=== PATIENT | male | born 1960 | race Caucasian/White ===

== ENCOUNTER 2018-03-23 13:30 | Oncology outpatient (ONC) | payer OTHER, SELFPAY ==
[2018-03-12 15:49] VITALS: BP 132/80; PULSE 48; RESP 17; TEMP 36.9; O2SAT 100
--- NOTE | 2018-03-12 15:49 | P.CONONC_ITS ---
History of Present Illness - Data of Consult Consult date: 03/12/18 - Consult Narrative Reason for consult: MGUS Narrative: [place] is a 57 year old male. Or he has a history of page to nerves affecting both lower extremities due to herniated disc. He underwent lumbar micro diskectomy. Postoperatively, he had persistent radicular paresthesias. He had extensive work up did not showed any identifiable etiology. On 08/22/2017, SPEP showed M protein of 0.2 g/dl. On 09/05/2017, SPEP showed 0.3 g/dl M-protein. On August 26, 2017, patient underwent lumbar spine MRI without gadolinium. And the study showed stable appearance of the postoperative number spine with multiple disc bulges resulting in no greater than mid foraminal stenosis. Skeletal survey from September 03, 2017 showed no evidence for lytic lesions in the axial or proximal appendicular skeleton. Degenerative changes were noted. He had BMA/Bx on 09/16/2017. plasma cell s accounted for 0.1% of total evnets. Polycolonal plasma cells present with a kappa to lambda ratio of 1.6. Flow showed no clonal plasma cell population. Normal male karyotype 46, XY[20], No assay specific abnormalities detected by Multiple Myeloma FISH Panel. On September 16, [address] scan of the chest abdomen and pelvis. And it showed no systemic or bulky lymphadenopathy; there were incidental 6 and 5 mm right lower lobe pulmonary nodules were seen. And nonspecific anterior pulmonary ground-glass opacity in the bilateral upper lobes. On 02/02/2018, CT chest without contrast was performed. It showed findings pointing toward diagnosis of likely benign granulomatous disease. One year follow-up with CT scan was recommended. Clinically, he reports no bone pain. His appetite is normal. His weight stable. No nausea or vomiting. No constipation and diarrhea. No blood in stool or in urine. His energy level is ok, but would like to run more. Patient reports pain?: No Home Medications and Allergies Home Medications Medication Instructions Recorded Confirmed Type acetaminophen 500 mg PO Q4-6H PRN 03/12/18 03/12/18 History clotrimazole 1 applic TOPICAL BID 03/12/18 03/12/18 History cyanocobalamin (vitamin B-12) 1,000 mcg PO DAILY 03/12/18 03/12/18 History fluticasone 2 spray INTRANASAL BID 03/12/18 03/12/18 History gabapentin 600 mg PO TID 03/12/18 03/12/18 History ibuprofen 800 mg PO BID PRN 03/12/18 03/12/18 History omega-3 fatty acids 1,000 mg PO DAILY 03/12/18 03/12/18 History Allergies Allergy/AdvReac Type Severity Reaction Status Date / Time latex Allergy Rash Verified 03/12/18 15:40 Medical History - Medical, Surgical, Family History Medical History: Medical History (Last Updated 03/12/18 @ 15:56 by Zacarias Cruz MD) MGUS (monoclonal gammopathy of unknown significance) ELIZABETH (obstructive sleep apnea) Solitary pulmonary nodule on lung CT Surgical History: Surgical History (Last Updated 03/12/18 @ 15:58 by Zacarias Cruz MD) History of laser refractive surgery Previous back surgery Family History: Family History (Last Updated 03/12/18 @ 15:59 by Zacarias Cruz MD) Mother Diabetes mellitus Father Heart attack - Social History Smoking Status: Never smoker Substance Use Type: does not use Alcohol Intake: current Alcohol Intake Frequency: 0-2 drinks per day Review of Systems All systems PM: reviewed and no additional remarkable complaints except as stated Exam Vital signs: Temp 98.5 F 03/12/18 15:49 Pulse 48 L 03/12/18 15:49 Resp 17 03/12/18 15:49 BP 132/80 03/12/18 15:49 Pulse Ox 100 03/12/18 15:49 ECOG 1 Narrative: Constitutional: Well developed, well nourished, not in any acute respiratory distress, average body habitus, well groomed, pleasant and cooperative. HEENT: Normocephalic atraumatic. Extraocular muscle movement intact. Pupils are round, equal and reactive to light and accommodations. Anicteric sclera. No hearing difficulty; Oral mucus membrane moist and without ulcers. Neck: Supple, symmetrical, and tracheal midline; No palpable thyromegaly and no palpable lymph nodes. Respiratory: No use of accessory muscles. Clear to auscultation, and no wheezes or rales or rubs. Cardiovascular: Regular rate and rhythm, S1 and S2 normal, no murmurs gallops or rubs. No JVD. No pitting edema of lower extremities. Abdomen: Soft, nontender, non-distended, bowel sounds normal, no palpable organomegaly, no hernia, no palpable masses. Lower extremities: No palpable pedal edema. Lymphatic: no palpable lymph nodes in the neck, axillae, or groins. Musculoskeletal: normal gait and station, no clubbing, no cyanosis, no pitting edema. Skin: no rashes, no ulcers, no petechiae Neurological: Awake and alert and oriented x3. CN II-XII grossly intact. No focal motor or sensory deficit. Psychiatric: Good judgment, good insight, normal affect, normal thought process , cooperative, no depression, no anxiety. Results - Labs HBSAg: non-reactive HBcAb, IgM: non-reactive HBsAb: negative HepA, IgM: non-reactive HepC Ab: non-reactive HIV-1+2, HIV P24 Ag: negative Assessment and Plan (1) MGUS (monoclonal gammopathy of unknown significance) His most recent laboratory test was in September 2017. Will repeat. Plan: 1. CBC, CMP, B2M, LDH, SPEP reflex IFX, SFLC, QIg 2. RTC after results are available for review. (2) Peripheral neuropathy Probably not related to MGUS Plan: Continue Gabapentin (3) Pulmonary nodules/lesions, multiple His most recent CT scan was on January the 2017. The findings point towards granulomatous disease. The recommendation is regular follow-up in 1 year; if stable may D/C CT scan in the future. Plan: CT in one year, due 02/2019
--- NOTE | 2018-03-13 09:17 | ONC.SCHED ---
MM PANEL DRAW 03/16/18 DOES NOT REQUIRE AUTHORIZATION FOR CODES PROVIDED BY MICHELLE: [id number]. DOCUMENTATION SCANNED INSURANCE AUTHORIZATION
[2018-03-16 09:34] LABS: Add Manual Diff / Slide Review NO; Basophils Percent Auto 0.7 % (0-2); Eosinophils Percent Auto 2.8 % (2-4); Hematocrit 42.6 % (41-53); Hemoglobin 14.7 g/dL (13.5-17.5); Lymphocytes Percent Auto 29.9 % (25-40); Mean Corpuscular HGB Conc 34.6 % (30-36); Mean Corpuscular Hemoglobin 32.1 PG (26-34); Mean Corpuscular Volume 92.8 fL (80-100); Monocytes Percent Auto 11.5 % (3-14); Neutrophils Absolute Auto 2400 /uL (3000-5900); Neutrophils Percent Auto 55.1 % (50-75); Platelet Count 198 X10^3/uL (150-400); Red Cell Distribution Width 12.7 % (11.6-14.8); White Blood Cell Count 4.3 X10^3/uL (4.5-11.0)
[2018-03-16 09:45] LABS: Alanine Aminotransferase 31 IU/L (21-72); Albumin 4.6 g/dL (3.5-5.0); Albumin Globulin Ratio 1.7 (1.0-2.8); Alkaline Phosphatase 53 U/L (38-126); Aspartate Aminotransferase 30 IU/L (17-59); BUN Creatinine Ratio 15.6 (6-22); Bilirubin Total 0.7 mg/dL (0.2-1.3); Blood Urea Nitrogen 14 mg/dL (9-20); Calcium 9.6 mg/dL (8.4-10.2); Carbon Dioxide 32 mmol/L (22-32); Chloride 101 mmol/L (98-107); Estimated Glomerular Filt Rate > 60.0 mL/min (>60); Globulin 2.7 g/dL (1.7-4.1); Glucose 93 mg/dL (70-100); HEMOLYSIS < 15 (0-50); Lactate Dehydrogenase 391 U/L (313-618); Potassium 4.2 mmol/L (3.4-5.1); Sodium 146 mmol/L (137-145); Total Protein 7.3 g/dL (6.3-8.2)
--- NOTE | 2018-03-16 14:32 | PC.NURSE ---
labs stable, immunology pending, next appt on 03/23
[2018-03-17 13:51] LABS: Free Kappa Light Chain 23.2 mg/L (3.3-19.4); Free Lambda 10.5 mg/L (5.7-26.3)
[2018-03-18 12:57] LABS: Immunoglobulin A 152 mg/dL (81-463); Immunoglobulin G, Quantitative 640 mg/dL (694-1618); Immunoglobulin M, Quantitative 418 mg/dL (48-271)
[2018-03-18 19:26] LABS: Beta-2-Microglobulin 2.61 mg/L (< 2.52)
[2018-03-20 14:18] LABS: Albumin 4.4 g/dL (3.8-4.8); Alpha 1 Globulin 0.2 g/dL (0.2-0.3); Alpha 2 Globulin 0.6 g/dL (0.5-0.9); Beta 1 Globulin 0.4 g/dL (0.4-0.6); Gamma Globulin 0.7 g/dL (0.8-1.7); Protein, Total 6.7 g/dL (6.1-8.1)
[2018-03-23 13:39] VITALS: BP 122/81; PULSE 50; RESP 18; TEMP 35.9; O2SAT 98
--- NOTE | 2018-03-23 13:39 | ONC.PN ---
PN -Subjective Interval history: Clinically, patient reported no new signs or symptoms. Patient has symptoms of bilateral lower extremity numbness still persists and without any changes. Patient denies any repeated infection history. Patient denies any numbing or tingling of upper extremities. No fever and no chills. No nausea no vomiting. History of Present Illness [place] is a 57 year old male. He has a history of painful nerves affecting both lower extremities due to herniated disc. He underwent lumbar micro diskectomy. Postoperatively, he had persistent radicular paresthesias. He had extensive work up that did not showed any identifiable etiology. On 08/22/2017, SPEP showed M protein of 0.2 g/dl. On 09/05/2017, SPEP showed 0.3 g/dl M-protein. On August 26, 2017, patient underwent lumbar spine MRI without gadolinium. And the study showed stable appearance of the postoperative number spine with multiple disc bulges resulting in no greater than mid foraminal stenosis. Skeletal survey from September 03, 2017 showed no evidence for lytic lesions in the axial or proximal appendicular skeleton. Degenerative changes were noted. He had BMA/Bx on 09/16/2017. plasma cell s accounted for 0.1% of total evnets. Polycolonal plasma cells present with a kappa to lambda ratio of 1.6. Flow showed no clonal plasma cell population. Normal male karyotype 46, XY[20], No assay specific abnormalities detected by Multiple Myeloma FISH Panel. On September 16, [address] scan of the chest abdomen and pelvis. And it showed no systemic or bulky lymphadenopathy; there were incidental 6 and 5 mm right lower lobe pulmonary nodules were seen. And nonspecific anterior pulmonary ground-glass opacity in the bilateral upper lobes. On 02/02/2018, CT chest without contrast was performed. It showed findings pointing toward diagnosis of likely benign granulomatous disease. One year follow-up with CT scan was recommended. - Patient Self-Reported Symptoms SR Neuro issues: Numbness or tingling - Additional ROS All systems PM: reviewed and no additional remarkable complaints except as stated Home Medications and Allergies Home Medications Medication Instructions Recorded Confirmed Type acetaminophen 500 mg PO Q4-6H PRN 03/12/18 03/12/18 History clotrimazole 1 applic TOPICAL BID 03/12/18 03/12/18 History cyanocobalamin (vitamin B-12) 1,000 mcg PO DAILY 03/12/18 03/12/18 History fluticasone 2 spray INTRANASAL BID 03/12/18 03/12/18 History gabapentin 600 mg PO TID 03/12/18 03/12/18 History ibuprofen 800 mg PO BID PRN 03/12/18 03/12/18 History omega-3 fatty acids 1,000 mg PO DAILY 03/12/18 03/12/18 History Allergies Allergy/AdvReac Type Severity Reaction Status Date / Time latex Allergy Rash Verified 03/12/18 15:40 Exam Vital signs: Temp 96.7 F L 03/23/18 13:39 Pulse 50 L 03/23/18 13:39 Resp 18 03/23/18 13:39 BP 122/81 03/23/18 13:39 Pulse Ox 98 03/23/18 13:39 ECOG 1 Narrative: Constitutional: Well developed, well nourished, not in any acute respiratory distress, average body habitus, well groomed, pleasant and cooperative. HEENT: Normocephalic atraumatic. Extraocular muscle movement intact. Pupils are round, equal and reactive to light and accommodations. Anicteric sclera. No hearing difficulty; Oral mucus membrane moist and without ulcers. Neck: Supple, symmetrical, and tracheal midline; No palpable thyromegaly and no palpable lymph nodes. Respiratory: No use of accessory muscles. Clear to auscultation, and no wheezes or rales or rubs. Cardiovascular: Regular rate and rhythm, S1 and S2 normal, no murmurs gallops or rubs. No JVD. No pitting edema of lower extremities. Abdomen: Soft, nontender, non-distended, bowel sounds normal, no palpable organomegaly, no hernia, no palpable masses. Lower extremities: No palpable pedal edema. Lymphatic: no palpable lymph nodes in the neck, axillae, or groins. Musculoskeletal: normal gait and station, no clubbing, no cyanosis, no pitting edema. Skin: no rashes, no ulcers, no petechiae Neurological: Awake and alert and oriented x3. CN II-XII grossly intact. No focal motor or sensory deficit. Psychiatric: Good judgment, good insight, normal affect, normal thought process, cooperative, no depression, no anxiety. Results - Labs WBC 4.3 X10^3/uL (4.5-11.0) L 03/16/18 09:16 RBC 4.60 X10^6/uL (4.5-5.9) 03/16/18 09:16 Hgb 14.7 g/dL (13.5-17.5) 03/16/18 09:16 Hct 42.6 % (41-53) 03/16/18 09:16 MCV 92.8 fL (80-100) 03/16/18 09:16 MCH 32.1 PG (26-34) 03/16/18 09:16 MCHC 34.6 % (30-36) 03/16/18 09:16 RDW 12.7 % (11.6-14.8) 03/16/18 09:16 Plt Count 198 X10^3/uL (150-400) 03/16/18 09:16 Neut % (Auto) 55.1 % (50-75) 03/16/18 09:16 Lymph % (Auto) 29.9 % (25-40) 03/16/18 09:16 [place] % (Auto) 11.5 % (3-14) 03/16/18 09:16 Eos % (Auto) 2.8 % (2-4) 03/16/18 09:16 Baso % (Auto) 0.7 % (0-2) 03/16/18 09:16 Neut # (Auto) 2400 /uL (0241-0886) L 03/16/18 09:16 Sodium 146 mmol/L (137-145) H 03/16/18 09:16 Potassium 4.2 mmol/L (3.4-5.1) 03/16/18 09:16 Chloride 101 mmol/L (98-107) 03/16/18 09:16 Carbon Dioxide 32 mmol/L (22-32) 03/16/18 09:16 BUN 14 mg/dL (9-20) 03/16/18 09:16 Creatinine 0.90 mg/dL (0.66-1.25) 03/16/18 09:16 Estimated GFR > 60.0 mL/min (>60) 03/16/18 09:16 BUN/Creatinine Ratio 15.6 (6-22) 03/16/18 09:16 Glucose 93 mg/dL (70-100) 03/16/18 09:16 Calcium 9.6 mg/dL (8.4-10.2) 03/16/18 09:16 Total Bilirubin 0.7 mg/dL (0.2-1.3) 03/16/18 09:16 AST 30 IU/L (17-59) 03/16/18 09:16 ALT 31 IU/L (21-72) 03/16/18 09:16 Alkaline Phosphatase 53 U/L (38-126) 03/16/18 09:16 Lactate Dehydrogenase 391 U/L (313-618) 03/16/18 09:16 Serum Total Protein 6.7 g/dL (6.1-8.1) 03/16/18 09:16 Total Protein 7.3 g/dL (6.3-8.2) 03/16/18 09:16 Albumin 4.4 g/dL (3.8-4.8) 03/16/18 09:16 Globulin 2.7 g/dL (1.7-4.1) 03/16/18 09:16 Albumin/Globulin Ratio 1.7 (1.0-2.8) 03/16/18 09:16 Hpnyq-0-Qkzaykrkp 0.2 g/dL (0.2-0.3) 03/16/18 09:16 Nitmb-6-Sceqalrow 0.6 g/dL (0.5-0.9) 03/16/18 09:16 Snhq-9-Ouzzluby 0.4 g/dL (0.4-0.6) 03/16/18 09:16 Disf-8-[place] 0.4 g/dL (0.2-0.5) 03/16/18 09:16 Ygjs-7-Gcwisgxipdpqy 2.61 mg/L (< 2.52) H 03/16/18 09:16 Gamma Globulins 0.7 g/dL (0.8-1.7) L 03/16/18 09:16 Abnorm Protein Band 1 Not Reportable 03/16/18 09:16 Abnorm Protein Band 2 Not Reportable 03/16/18 09:16 Abn Gamma Band 3 Serum Not Reportable 03/16/18 09:16 PEP Comment See note 03/16/18 09:16 IgG, Serum (MS) 640 mg/dL (694-1618) L 03/16/18 09:16 IgA 152 mg/dL (81-463) 03/16/18 09:16 IgM 418 mg/dL (48-271) H 03/16/18 09:16 CHRIS & SPEP Interp See note 03/16/18 09:16 Free [place] Light Chains 23.2 mg/L (3.3-19.4) H 03/16/18 09:16 Free [place] Light Chain 10.5 mg/L (5.7-26.3) 03/16/18 09:16 [place]/Lambda Ratio 2.20 (0.26-1.65) H 03/16/18 09:16 Assessment and Plan (1) MGUS (monoclonal gammopathy of unknown significance) I reviewed laboratory test results with the patient. Serum protein electrophoresis did show a faint band, however the immunofixation did not identify any monoclonal proteins. The serum free light chain ratio was also within the normal range. Previously patient had a bone marrow aspirate biopsy which came back completely normal without any evidence of multiple myeloma or MGUS. I talked with the patient in my opinion he does not have any primary blood disorder to account for the elevated serum IgM level and lowered serum IgG level. I recommend continued follow up and be evaluated by Allergy and immunology. Plan: 1. RTC 6 months CBC, CMP, B2M, LDH, SPEP reflex IFX, SFLC, QIg 2. Referral to Allergy and Immunol for evaluation (2) Peripheral neuropathy Probably not related to MGUS Plan: Continue Gabapentin (3) Pulmonary nodules/lesions, multiple His CT scan on Feb 02 2018 showed pulmonary nodules suspicious for granulomatous disease. The recommendation is regular follow-up in 1 year; if stable may D/C CT scan in the future. Plan: CT in one year, due 02/2019
--- NOTE | 2018-03-25 10:30 | ONC.SCHED ---
ALLERGERY REFERRAL-TRIED TO SUBMIT ONLINE AND OUR CLINIC/PHYSICIANS WERE NOT LISTED AND I COULD NOT FREE TEXT. I FAXED EVERYTHING OVER TO THE REFERRAL CENTER AT [facility] SO THEY COULD SUBMIT IT ON THEIR END. I CALLED AND NOTIFIED PATIENT THAT I SENT EVERYTHING THAT WAY AND TO CALL IF HE DOES NOT HEAR ANYTHING WITHIN THE NEXT COUPLE OF DAYS.
== END 2018-03-24 12:00 ==
PROVIDERS: Visit Provider Internal Medicine Hematology & Oncology
DX: D47.2 Monoclonal gammopathy (principal); G62.9 Polyneuropathy, unspecified; R91.8 Other nonspecific abnormal finding of lung field
CPT/HCPCS: 36415; 80053; 82232; 82784; 83615; 83883; 84155; 84165; 85025; 96365; 99204; 99214

== ENCOUNTER → 2018-03-24 07:27 | Outpatient (CLI) | payer OTHER, SELFPAY ==
--- NOTE | 2018-03-24 | DI.MRI.S_ITS ---
PROCEDURE: MR THORACIC SPINE WO/W CON INDICATIONS: PAIN IN THORACIC SPINE TECHNIQUE: Noncontrast sagittal T1 spin echo and T2 fast spin echo, sagittal STIR, axial T1 and T2 fast spin echo through the thoracic spine. In this patient, coronal T2-weighted images were also performed. After the administration of contrast, axial and sagittal T1 spin echo with fat saturation through the thoracic spine. COMPARISON: None. FINDINGS: Image quality: Excellent. Alignment and curvature: There is normal bony alignment. Marrow: Marrow is of normal overall signal. No acute vertebral body compression fractures. Spinal cord: Visualized spinal cord is of normal signal and size, without abnormal enhancement. Paraspinous soft tissues: No paravertebral masses or abnormal enhancement. Miscellaneous: Central canal and foramina appear widely patent at all scanned levels within the thoracic spine. Note is made of focal degenerative change of the C6-C7 level, with disc space narrowing and endplate irregularity. IMPRESSION: No focal thoracic spine abnormality is seen. Focal C6-C7 degenerative change. Mild dextroconvex thoracic scoliotic curvature. Dictated by: Reinaldo Rodríguez M.D. on 03/24/2018 at 9:28 Approved by: Reinaldo Rodríguez M.D. on 03/24/2018 at 9:30
== END ==
PROVIDERS: PCP Orthopaedic Surgery; Visit Provider Orthopaedic Surgery
DX: M54.6 Pain in thoracic spine (principal); M41.84 Other forms of scoliosis, thoracic region; M48.02 Spinal stenosis, cervical region
CPT/HCPCS: 72157; A9579

== ENCOUNTER → 2018-08-28 07:50 | Outpatient (CLI) | payer OTHER, SELFPAY ==
[2018-08-28 09:09] LABS: Add Manual Diff / Slide Review NO; Basophils Absolute Auto 0 /uL (0-100); Basophils Percent Auto 1.2 % (0-2); Eosinophils Absolute Auto 100 /uL (0-450); Eosinophils Percent Auto 2.7 % (2-4); Hematocrit 38.6 % (41-53); Hemoglobin 13.2 g/dL (13.5-17.5); Lymphocytes Absolute Auto 1100 /uL (1100-4500); Lymphocytes Percent Auto 27.6 % (25-40); Mean Corpuscular HGB Conc 34.1 % (30-36); Mean Corpuscular Volume 93.8 fL (80-100); Monocytes Absolute Auto 400 /uL (0-900); Monocytes Percent Auto 10.8 % (3-14); Neutrophils Absolute Auto 2200 /uL (1500-7000); Neutrophils Percent Auto 57.7 % (50-75); Platelet Count 179 X10^3/uL (150-400); Red Blood Cell Count 4.11 X10^6/uL (4.5-5.9); Red Cell Distribution Width 12.9 % (11.6-14.8); White Blood Cell Count 3.8 X10^3/uL (4.5-11.0)
[2018-08-28 10:14] LABS: Alanine Aminotransferase 46 IU/L (21-72); Albumin 4.1 g/dL (3.5-5.0); Albumin Globulin Ratio 1.7 (1.0-2.8); Alkaline Phosphatase 66 U/L (38-126); Aspartate Aminotransferase 50 IU/L (17-59); BUN Creatinine Ratio 21.3 (6-22); Bilirubin Total 1.3 mg/dL (0.2-1.3); Blood Urea Nitrogen 17 mg/dL (9-20); Calcium 9.3 mg/dL (8.4-10.2); Carbon Dioxide 30 mmol/L (22-32); Chloride 102 mmol/L (98-107); Estimated Glomerular Filt Rate > 60.0 mL/min (>60); Globulin 2.4 g/dL (1.7-4.1); Glucose 92 mg/dL (70-100); HEMOLYSIS < 15 (0-50); Potassium 4.6 mmol/L (3.4-5.1); Sodium 139 mmol/L (137-145); Total Protein 6.5 g/dL (6.3-8.2)
[2018-08-28 10:47] LABS: Lactate Dehydrogenase 465 U/L (313-618)
[2018-08-30 11:49] LABS: Beta-2-Microglobulin 1.79 mg/L (< 2.52)
[2018-09-01 23:01] LABS: Alpha 1 Globulin 0.2 g/dL (0.2-0.3); Alpha 2 Globulin 0.6 g/dL (0.5-0.9); Beta 1 Globulin 0.4 g/dL (0.4-0.6); Gamma Globulin 0.7 g/dL (0.8-1.7); Protein, Total 6.2 g/dL (6.1-8.1)
== END ==
PROVIDERS: PCP Orthopaedic Surgery; Visit Provider Internal Medicine Hematology & Oncology
DX: D47.2 Monoclonal gammopathy (principal)
CPT/HCPCS: 36415; 80053; 82232; 83615; 84155; 84165; 85025

== ENCOUNTER → 2020-04-08 09:59 | Outpatient (CLI) | payer OTHER, SELFPAY ==
[2020-04-08 11:55] LABS: BUN Creatinine Ratio 17.9 (6-22); Blood Urea Nitrogen 15 mg/dL (9-20); Estimated Glomerular Filt Rate > 60.0 mL/min (>60)
== END ==
PROVIDERS: Referring Provider Psychiatry & Neurology Neurology; Visit Provider Psychiatry & Neurology Neurology
DX: G61.81 Chronic inflammatory demyelinating polyneuritis (principal)
CPT/HCPCS: 82565; 84520

== ENCOUNTER → 2021-02-17 10:41 | Outpatient (ROUT) | payer OTHER, SELFPAY ==
[2021-02-17 11:02] LABS: BUN Creatinine Ratio 17.6 (6-22); Blood Urea Nitrogen 15 mg/dL (9-20); Estimated Glomerular Filt Rate > 60.0 mL/min (>60)
== END ==
PROVIDERS: PCP Physician Assistant; Visit Provider Psychiatry & Neurology Neurology
DX: G61.81 Chronic inflammatory demyelinating polyneuritis (principal)
CPT/HCPCS: 82565; 84520

== ENCOUNTER → 2021-05-26 10:12 | Outpatient (ROUT) | payer OTHER, SELFPAY ==
[2021-05-26 10:35] LABS: BUN Creatinine Ratio 18.1 (6-22); Blood Urea Nitrogen 17 mg/dL (9-20); Estimated Glomerular Filt Rate > 60.0 mL/min (>60)
== END ==
PROVIDERS: PCP Physician Assistant; Visit Provider Psychiatry & Neurology Neurology
DX: G61.81 Chronic inflammatory demyelinating polyneuritis (principal)
CPT/HCPCS: 82565; 84520